=== PATIENT | female | born 1970 | race Caucasian/White ===

== ENCOUNTER → 2020-11-04 | Outpatient (CLI) | payer OTHER | LOC: MAMO 10:30 → US 11:00 | DX: N63.0 Unspecified lump in unspecified breast (principal) | CPT/HCPCS: 76641-RT; 77065; G0279 ==

== ENCOUNTER → 2021-05-12 | Outpatient (CLI) | payer OTHER | LOC: MAMO 11:52 | DX: R92.8 Other abnormal and inconclusive findings on diagnostic imaging of breast (principal) | CPT/HCPCS: 76641-RT; 77065 ==

== ENCOUNTER → 2021-08-01 | Outpatient (CLI) | payer OTHER | LOC: CT 13:38 | DX: J39.2 Other diseases of pharynx (principal) | CPT/HCPCS: 36415; 70488; 82565; 84520; Q9967 ==